=== PATIENT | female | born 1965 | race Caucasian/White ===

== ENCOUNTER 2020-07-13 15:22 | Outpatient (REF) | payer MEDICAID, SELFPAY ==
--- NOTE | 2020-07-13 15:26 | MM_ITS ---
EXAMINATION: MM SCREENING DIGITAL BREAST TOMOSYNTHESIS, BILATERAL CLINICAL INFORMATION: Screening. Asymptomatic. The lifetime risk of breast cancer based on the Tyrer-Cuzick Model is 7.3%. COMPARISON: Mammography: December 03, 2015 and studies dating back to January 17, 2012 TECHNIQUE: Digital breast tomosynthesis is performed in both the craniocaudal and mediolateral oblique views along with computer-aided detection (CAD). Synthesized 2D images are generated from the tomosynthesis. FINDINGS: The breasts are heterogeneously dense, which may obscure small masses (ACR BI-RADS breast composition Category c). No new abnormal dominant mass is seen within the right breast. No suspicious grouping of microcalcifications or architectural distortion seen. Within the central lateral aspect of the left breast on craniocaudal view there is a 6 mm partially circumscribed density approximately 5 cm from the nipple for which spot compression view and possible ultrasound is recommended. I do not definitely see a correlate on mediolateral oblique image. MM/MM tomosynthesis screening BI IMPRESSION: Left breast density for further evaluation. ASSESSMENT: BI-RADS 0: Incomplete - Need Additional Imaging Evaluation RECOMMENDATION: 1. Additional views of the left breast 2. Targeted ultrasound if warranted after review of the additional views. 3. Radiology department staff will contact the patient for additional imaging.
== END 2020-07-13 15:23 | disposition home or self-care (01) ==
LOC: HO.MAMMO 15:22
PROVIDERS: Visit Provider Internal Medicine
DX: Z12.31 Encounter for screening mammogram for malignant neoplasm of breast (principal)
CPT/HCPCS: 77063; 77067

== ENCOUNTER 2020-07-15 16:22 | Outpatient (REF) | payer MEDICAID, SELFPAY ==
--- NOTE | 2020-07-15 17:25 | XR_ITS ---
EXAMINATION: XR FOOT, LEFT XR FOOT, RIGHT XR HAND, RIGHT XR HAND, LEFT XR KNEE, RIGHT CLINICAL INFORMATION: 55-year-old female with history of systemic lupus erythematosus. COMPARISON: None TECHNIQUE: Right knee, 4 views Right hand, 3 views Left hand, 3 views Right foot, 3 views Left foot, 3 views FINDINGS: Right knee: Alignment is normal. Bones, joints and soft tissues are normal. No arthritic changes. No fracture, subluxation or joint effusion. Right hand: Carpal bones are normal. The carpal joint spaces are well-preserved. At the thumb MCP joint, there is mild narrowing of joint space and minimal osteophyte formation. Soft tissues are swollen around the MCP joint. There is mild anterior subluxation of the proximal phalanx at this joint. No ulnar deviation at MCP joints. The 2nd - 5th MCP joint spaces are normal. Mild joint space narrowing and/or minimal marginal osteophyte formation at some of the DIP joints. No periarticular osteoporosis, erosion or periostitis. No soft tissue calcifications. Left hand: Bones have normal alignment in the hand and wrist. No particular osteoporosis, erosion or periostitis. Small subchondral cyst of the proximal lunate at the ulnolunate joint. No subluxation or ulnar deviation at the metacarpophalangeal joints. There are osteophytes at several DIP joints. No soft tissue calcifications. Right foot: Moderate-sized plantar calcaneal enthesophyte. Bones have normal alignment. Joint spaces are maintained in the midfoot, hindfoot and metatarsophalangeal joints. No periarticular osteoporosis, subluxation or soft tissue calcification. No erosions or periostitis. There is joint space narrowing with minimal marginal osteophyte formation at some of the DIP joints. Left foot: Moderate-sized plantar calcaneal enthesophyte. Bones have normal alignment. Joint spaces are maintained in the midfoot, hindfoot and metatarsophalangeal joints. No periarticular osteoporosis, subluxation or soft tissue calcification. No erosions or periostitis. There is joint space narrowing and minimal marginal osteophyte formation at some of the DIP joints. There appears to be minimal degenerative subluxation at the 4th DIP joint. XR/XR foot LT min 3V IMPRESSION: * The right knee is normal. * No soft tissue calcifications in the hands or feet. At the right thumb metacarpophalangeal joint, there is mild particular soft tissue swelling and mild volar subluxation. Although findings are nonspecific, they might be related to the patient's autoimmune disease. 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
[2020-07-15 18:06] LABS: Basophils Absolute Auto 0.1 X10*3/uL (0.0-0.2); Basophils Percent Auto 0.6 % (0-2); Hemoglobin 12.3 g/dl (12.0-16.0); Imm Gran Abs Auto 0.04 X10*3/uL (0.00-0.03); Imm Gran Pct Auto 0.5 % (0.0-0.4); MANUAL DIFF FLAG SCAN; Mean Platelet Volume 12.2 fL (9.4-12.3); PLT CLUMP 1; SCAN SMEAR FLAG 1
[2020-07-15 18:08] LABS: Eosinophils Absolute Auto 0.2 X10*3/uL (0.0-0.4); Hematocrit 38.2 % (37-47); Lymphocytes Absolute Auto 2.9 X10*3/uL (1.2-4.9); Lymphocytes Percent Auto 32.5 % (20-40); Mean Corpuscular HGB Conc 32.2 g/dl (31.0-35.0); Mean Corpuscular Hemoglobin 28.7 pg (27.0-33.0); Mean Corpuscular Volume 89.3 fL (80-98); Monocytes Absolute Auto 0.7 X10*3/uL (0.1-1.2); Monocytes Percent Auto 8.2 % (2-11); Neutrophils Percent Auto 56.2 % (45-73); Red Blood Count 4.28 X10*6/uL (4.20-5.50); White Blood Count 8.8 X10*3/uL (4.8-10.8)
[2020-07-15 18:11] LABS: Glucose Urine UA NEG (NEG); Leukocyte Esterase Urine TRACE (NEG); Nitrite Urine NEG (NEG); PH 5.5 (5.0-8.0); Specific Gravity - Urine >= 1.030 (1.005-1.025); Urine Blood NEG (NEG); Urine Ketones NEG (NEG); Urine Protein NEG (NEG-TRACE)
[2020-07-15 18:13] LABS: Appearance Urine CLEAR; Color Urine YELLOW
[2020-07-15 18:18] LABS: Bacteria Urine TRACE /LPF; RBC Urine 0 /HPF (0); Squamous Epithelial Cell Urine 1+ /LPF; WBC Urine 0-2 /HPF (0-4)
[2020-07-15 18:32] LABS: Alanine Aminotransferase 30 U/L (0-31); Albumin Level 4.4 g/dL (3.5-5.0); Alkaline Phosphatase 100 U/L (39-117); Anion Gap 13 (12-20); Aspartate Amino Transferase 24 U/L (5-31); Bilirubin Total 0.2 mg/dL (0.0-1.0); Blood Urea Nitrogen 24 mg/dL (9-16); C Reactive Protein 0.41 mg/dL (< or = 0.50); Calcium 9.4 mg/dL (8.4-10.2); Carbon Dioxide 27 mmol/L (22-29); Chloride 102 mmol/L (96-108); Estimated Glomerular Filt Rate > 60; Glucose Random 82 mg/dL (60-115); Platelet Count 204 X10*3/uL (160-400); Potassium 4.5 mmol/l (3.3-5.1); Rheumatoid Factor < 15.0 IU/mL (<15.0); Sodium 137 mmol/L (135-145); Total Protein 7.9 g/dL (6.5-8.0)
[2020-07-15 19:07] LABS: Erythrocyte Sedimentation Rate 34 MM/HR (0-20)
[2020-07-15 22:51] LABS: SLIDE REVIEW VERIFIED
[2020-07-17 08:45] LABS: Hepatitis A Antibody IgM 0.66 Index (0-0.79); ~HepC Num1 0.06 S/CO (0.00-0.79); ~Hepatitis A Antibody IgM Nonreactive (Nonreactive); ~Hepatitis B Surface Antibody REACTIVE (Nonreactive); ~Hepatitis C Antibody Nonreactive (Nonreactive)
[2020-07-17 09:27] LABS: HBc Num1 0.04 S/CO (0.00-0.79); HBsAGNum1 0.18 S/CO (0.00-0.99); Hepatitis B Core Antibody Nonreactive (Nonreactive); Hepatitis B Surface Antigen Negative (Negative)
[2020-07-17 11:53] LABS: Complement C3 168 mg/dL (83-193)
[2020-07-17 12:17] LABS: Anti DNA DS Antibody 2 IU/mL; Antibody to SS-A Antigen <1.0 NEG AI (<1.0 NEG); Antibody to SS-B Antigen <1.0 NEG AI (<1.0 NEG); SM/Ribonucleoprotein Ab <1.0 NEG AI (<1.0 NEG); Smith Protein <1.0 NEG AI (<1.0 NEG)
[2020-07-17 18:57] LABS: Cyclic Citrullinated Peptide <16 UNITS
[2020-07-17 20:32] LABS: TS Negative Control Passed; TS Panel A 0; TS Panel B 0; TS Positive Control Passed; TSpotTB Negative (SeeBelow)
[2020-07-18 15:57] LABS: Anti Nuclear Antibody Pattern Nuclear, Speckled; Anti Nuclear Antibody Screen POSITIVE (NEGATIVE); Anti Nuclear Antibody Titer 1:40 titer
== END 2020-07-15 16:23 | disposition home or self-care (01) ==
LOC: HO.LAB 16:22
PROVIDERS: PCP Internal Medicine; Referring Provider Internal Medicine; Visit Provider Student in an Organized Health Care Education/Training Program
DX: M32.9 Systemic lupus erythematosus, unspecified (principal)
CPT/HCPCS: 36415; 73130; 73564; 73630; 80053; 81001; 85025; 85652; 86038; 86039; 86140; 86160; 86200; 86225; 86235; 86431; 86481; 86704; 86706; 86709; 86803; 87340; 99202

== ENCOUNTER 2020-08-10 11:38 | Emergency (ER) | payer MEDICAID, SELFPAY ==
[2020-08-10 12:51] VITALS: BP 136/70; PULSE 89; RESP 16; TEMP 36.5; O2SAT 100; BMI 30.2
--- NOTE | 2020-08-10 12:51 | ED_ITS ---
HPI - General Adult General Chief complaint: General Medical <Marie Levy NP - Last Filed: 08/10/20 12:54> Stated complaint: chest pain,hand tingling,back pain <Marie Levy NP - Last Filed: 08/10/20 12:54> Time Seen by Provider: 08/10/20 12:51 <Marie Levy NP - Last Filed: 08/10/20 12:54> Related Data Home medications: Home Medications Medication Instructions Recorded Confirmed acetaminophen 650 mg 650 mg PO Q12H 07/15/20 tablet,extended release betamethasone dipropionate 0.05 % 1 appl TOPICAL DAILY 07/15/20 lotion calcium carbonate 600 mg calcium 600 mg PO DAILY 07/15/20 (1,500 mg) tablet cholecalciferol (vitamin D3) 50 50 mcg PO DAILY 07/15/20 mcg (2,000 unit) capsule citalopram 40 mg tablet 40 mg PO DAILY 07/15/20 diclofenac potassium 50 mg tablet 50 mg PO DAILY 07/15/20 diclofenac sodium 1 % topical gel 2 g TOPICAL QID 07/15/20 hydroxychloroquine 200 mg tablet 200 mg PO DAILY 07/15/20 lidocaine 5 % topical ointment 1 appl TOPICAL BEDTIME 07/15/20 omeprazole 20 mg capsule,delayed 20 mg PO DAILY 07/15/20 release quetiapine 25 mg tablet 25 mg PO BEDTIME 07/15/20 rosuvastatin 40 mg tablet 40 mg PO DAILY 07/15/20 Previous Rx's Medication Instructions Recorded tizanidine 2 mg capsule 2 mg PO BEDTIME PRN #30 cap 07/15/20 <Marie Levy NP - Last Filed: 08/10/20 12:54> Allergies/adverse reactions: Allergies Allergy/AdvReac Type Severity Reaction Status Date / Time No Known Allergies Allergy Verified 07/15/20 16:24 [No Known Allergies*] <Marie Levy NP - Last Filed: 08/10/20 12:54> PMF Past Medical History Medical History: Medical History Carpal tunnel syndrome, right Depression GERD (gastroesophageal reflux disease) Hx of carpal tunnel syndrome Hypercholesterolemia Lupus <Marie Levy NP - Last Filed: 08/10/20 12:54> Surgical History: Surgical History H/O: hysterectomy Hx of hernia repair Hx of oophorectomy Hx of tubal ligation <Marie Levy NP - Last Filed: 08/10/20 12:54> Family History Family History: Family History Father Liver cancer <Marie Levy NP - Last Filed: 08/10/20 12:54> Social History Social History: Social History Alcohol intake: never Smoking Status: Never smoker Advance Directives: No Advance Directives Information Provided: Yes <Marie Levy NP - Last Filed: 08/10/20 12:54> Physical Exam Vital Signs: Vital Signs: Last Vital Signs Temp 98.5 F 08/10/20 20:26 Pulse 85 08/10/20 20:26 Resp 16 08/10/20 12:51 BP 133/82 08/10/20 20:26 Pulse Ox 98 08/10/20 20:26 Body Mass Index 30.2 <Marie Levy NP - Last Filed: 08/10/20 12:54> Vital Signs: Last Vital Signs Temp 98.5 F 08/10/20 20:26 Pulse 85 08/10/20 20:26 Resp 16 08/10/20 12:51 BP 133/82 08/10/20 20:26 Pulse Ox 98 08/10/20 20:26 Body Mass Index 30.2 <Alisia Carver MD - Last Filed: 08/10/20 21:56> Course Course Course Narrative: 1250-This is a rapid medical exam. 55 yo female with past medical history here left mid back which radiates to left chest, left arm and left shoulder x 3 weeks. Pain is worsened with deep breathing. No cough/shotness of breath. +malaise. Will check CXR, EKG, labs. Deferred additional HPI, PE and ROS to primary provider. <Marie Levy NP - Last Filed: 08/10/20 12:54> Medical Decision Making Lab Data Result diagrams: : 08/10/20 15:47 08/10/20 15:47 <Marie Levy NP - Last Filed: 08/10/20 12:54> Labs: Lab Results 08/10/20 08/10/20 08/10/20 Range/Units 15:46 15:47 15:47 WBC 9.7 (4.8-10.8) X10*3/uL RBC 4.63 (4.20-5.50) X10*6/uL Hgb 13.4 (12.0-16.0) g/dl Hct 40.9 (37-47) % MCV 88.3 (80-98) fL MCH 28.9 (27.0-33.0) pg MCHC 32.8 (31.0-35.0) g/dl RDW 13.1 (11.0-16.0) % Plt Count 263 D (160-400) X10*3/uL MPV 10.8 (9.4-12.3) fL Immature Gran % (Auto) 0.5 H (0.0-0.4) % Neut % (Auto) 61.1 (45-73) % Lymph % (Auto) 29.8 (20-40) % [place] % (Auto) 7.0 (2-11) % Eos % (Auto) 1.1 (0-4) % Baso % (Auto) 0.5 (0-2) % Lymph # (Auto) 2.9 (1.2-4.9) X10*3/uL [place] # (Auto) 0.7 (0.1-1.2) X10*3/uL Eos # (Auto) 0.1 (0.0-0.4) X10*3/uL Baso # (Auto) 0.1 (0.0-0.2) X10*3/uL Abs Immat Gran (auto) 0.05 H (0.00-0.03) X10*3/uL Absolute Neuts (auto) 5.9 (2.0-8.3) X10*3/uL Absolute Nucleated RBC 0.000 (0.0-0.012) X10*3/uL Nucleated RBC % (auto) 0.0 (0.0-0.2) /100WBC Hold Blue Top SEE NOTE Sodium 135 (135-145) mmol/L Potassium 5.1 (3.3-5.1) mmol/l Chloride 99 (96-108) mmol/L Carbon Dioxide 29 (22-29) mmol/L Anion Gap 12 (12-20) BUN 25 H (9-16) mg/dL Creatinine 0.87 (0.5-1.4) mg/dL Estim Creat Clear Calc 79.2 Estimated GFR > 60 Random Glucose 90 (60-115) mg/dL Calcium 9.8 (8.4-10.2) mg/dL Troponin I High Sens (<3.5-17.0) ng/L Urine Color Urine Appearance Urine pH (5.0-8.0) Ur Specific [place] (1.005-1.025) Urine Protein (NEG-TRACE) MG/DL Urine Glucose (UA) (NEG) MG/DL Urine Ketones (NEG) MG/DL Urine Blood (NEG) Urine Nitrite (NEG) Ur Leukocyte Esterase (NEG) 08/10/20 08/10/20 Range/Units 15:47 21:13 WBC (4.8-10.8) X10*3/uL RBC (4.20-5.50) X10*6/uL Hgb (12.0-16.0) g/dl Hct (37-47) % MCV (80-98) fL MCH (27.0-33.0) pg MCHC (31.0-35.0) g/dl RDW (11.0-16.0) % Plt Count (160-400) X10*3/uL MPV (9.4-12.3) fL Immature Gran % (Auto) (0.0-0.4) % Neut % (Auto) (45-73) % Lymph % (Auto) (20-40) % [place] % (Auto) (2-11) % Eos % (Auto) (0-4) % Baso % (Auto) (0-2) % Lymph # (Auto) (1.2-4.9) X10*3/uL [place] # (Auto) (0.1-1.2) X10*3/uL Eos # (Auto) (0.0-0.4) X10*3/uL Baso # (Auto) (0.0-0.2) X10*3/uL Abs Immat Gran (auto) (0.00-0.03) X10*3/uL Absolute Neuts (auto) (2.0-8.3) X10*3/uL Absolute Nucleated RBC (0.0-0.012) X10*3/uL Nucleated RBC % (auto) (0.0-0.2) /100WBC Hold Blue Top Sodium (135-145) mmol/L Potassium (3.3-5.1) mmol/l Chloride (96-108) mmol/L Carbon Dioxide (22-29) mmol/L Anion Gap (12-20) BUN (9-16) mg/dL Creatinine (0.5-1.4) mg/dL Estim Creat Clear Calc Estimated GFR Random Glucose (60-115) mg/dL Calcium (8.4-10.2) mg/dL Troponin I High Sens < 3.5 (<3.5-17.0) ng/L Urine Color YELLOW Urine Appearance CLEAR Urine pH 6.5 (5.0-8.0) Ur Specific [place] 1.025 (1.005-1.025) Urine Protein NEG (NEG-TRACE) MG/DL Urine Glucose (UA) NEG (NEG) MG/DL Urine Ketones NEG (NEG) MG/DL Urine Blood NEG (NEG) Urine Nitrite NEG (NEG) Ur Leukocyte Esterase NEG (NEG) <Marie Levy, [employer] - Last Filed: 08/10/20 12:54> Lab Results 08/10/20 08/10/20 08/10/20 Range/Units 15:46 15:47 15:47 WBC 9.7 (4.8-10.8) X10*3/uL RBC 4.63 (4.20-5.50) X10*6/uL Hgb 13.4 (12.0-16.0) g/dl Hct 40.9 (37-47) % MCV 88.3 (80-98) fL MCH 28.9 (27.0-33.0) pg MCHC 32.8 (31.0-35.0) g/dl RDW 13.1 (11.0-16.0) % Plt Count 263 D (160-400) X10*3/uL MPV 10.8 (9.4-12.3) fL Immature Gran % (Auto) 0.5 H (0.0-0.4) % Neut % (Auto) 61.1 (45-73) % Lymph % (Auto) 29.8 (20-40) % [place] % (Auto) 7.0 (2-11) % Eos % (Auto) 1.1 (0-4) % Baso % (Auto) 0.5 (0-2) % Lymph # (Auto) 2.9 (1.2-4.9) X10*3/uL [place] # (Auto) 0.7 (0.1-1.2) X10*3/uL Eos # (Auto) 0.1 (0.0-0.4) X10*3/uL Baso # (Auto) 0.1 (0.0-0.2) X10*3/uL Abs Immat Gran (auto) 0.05 H (0.00-0.03) X10*3/uL Absolute Neuts (auto) 5.9 (2.0-8.3) X10*3/uL Absolute Nucleated RBC 0.000 (0.0-0.012) X10*3/uL Nucleated RBC % (auto) 0.0 (0.0-0.2) /100WBC Hold Blue Top SEE NOTE Sodium 135 (135-145) mmol/L Potassium 5.1 (3.3-5.1) mmol/l Chloride 99 (96-108) mmol/L Carbon Dioxide 29 (22-29) mmol/L Anion Gap 12 (12-20) BUN 25 H (9-16) mg/dL Creatinine 0.87 (0.5-1.4) mg/dL Estim Creat Clear Calc 79.2 Estimated GFR > 60 Random Glucose 90 (60-115) mg/dL Calcium 9.8 (8.4-10.2) mg/dL Troponin I High Sens (<3.5-17.0) ng/L Urine Color Urine Appearance Urine pH (5.0-8.0) Ur Specific [place] (1.005-1.025) Urine Protein (NEG-TRACE) MG/DL Urine Glucose (UA) (NEG) MG/DL Urine Ketones (NEG) MG/DL Urine Blood (NEG) Urine Nitrite (NEG) Ur Leukocyte Esterase (NEG) 08/10/20 08/10/20 Range/Units 15:47 21:13 WBC (4.8-10.8) X10*3/uL RBC (4.20-5.50) X10*6/uL Hgb (12.0-16.0) g/dl Hct (37-47) % MCV (80-98) fL MCH (27.0-33.0) pg MCHC (31.0-35.0) g/dl RDW (11.0-16.0) % Plt Count (160-400) X10*3/uL MPV (9.4-12.3) fL Immature Gran % (Auto) (0.0-0.4) % Neut % (Auto) (45-73) % Lymph % (Auto) (20-40) % [place] % (Auto) (2-11) % Eos % (Auto) (0-4) % Baso % (Auto) (0-2) % Lymph # (Auto) (1.2-4.9) X10*3/uL [place] # (Auto) (0.1-1.2) X10*3/uL Eos # (Auto) (0.0-0.4) X10*3/uL Baso # (Auto) (0.0-0.2) X10*3/uL Abs Immat Gran (auto) (0.00-0.03) X10*3/uL Absolute Neuts (auto) (2.0-8.3) X10*3/uL Absolute Nucleated RBC (0.0-0.012) X10*3/uL Nucleated RBC % (auto) (0.0-0.2) /100WBC Hold Blue Top Sodium (135-145) mmol/L Potassium (3.3-5.1) mmol/l Chloride (96-108) mmol/L Carbon Dioxide (22-29) mmol/L Anion Gap (12-20) BUN (9-16) mg/dL Creatinine (0.5-1.4) mg/dL Estim Creat Clear Calc Estimated GFR Random Glucose (60-115) mg/dL Calcium (8.4-10.2) mg/dL Troponin I High Sens < 3.5 (<3.5-17.0) ng/L Urine Color YELLOW Urine Appearance CLEAR Urine pH 6.5 (5.0-8.0) Ur Specific [place] 1.025 (1.005-1.025) Urine Protein NEG (NEG-TRACE) MG/DL Urine Glucose (UA) NEG (NEG) MG/DL Urine Ketones NEG (NEG) MG/DL Urine Blood NEG (NEG) Urine Nitrite NEG (NEG) Ur Leukocyte Esterase NEG (NEG) <Alisia Carver MD - Last Filed: 08/10/20 21:56> Imaging Data Chest x-ray: Radiologist's impression: FINDINGS: No significant abnormality is noted involving the heart, lungs, mediastinum, bony thorax or soft tissues. XR/XR chest 2V IMPRESSION: Unremarkable chest exam. <Alisia Carver MD - Last Filed: 08/10/20 21:56> ECG Data Attestation: I personally reviewed and interpreted this ECG as follows: (Heart rate 75, sinus rhythm, QTC elevation or depression, no ST segment depression) <Alisia Carver MD - Last Filed: 08/10/20 21:56> Discharge Plan Discharge Clinical Impression: Back pain Qualifiers: Back pain location: back pain in unspecified location Chronicity: unspecified Back pain laterality: left Qualified Code(s): M54.9 - Dorsalgia, unspecified Arthralgia Qualifiers: Joint pain location: shoulder Laterality: left Qualified Code(s): M25.512 - Pain in left shoulder <Marie Levy NP - Last Filed: 08/10/20 12:54> Patient Disposition: Home, Self-Care <Marie Levy NP - Last Filed: 08/10/20 12:54> Instructions: Arthralgia (ED) <Marie Levy NP - Last Filed: 08/10/20 12:54> Additional Instructions: Please follow-up with your primary care physician tomorrow. If you have any worsening or new symptoms, please return to the emergency room or call 911 <Marie Levy NP - Last Filed: 08/10/20 12:54> Prescriptions: No Action betamethasone dipropionate 0.05 % lotion 1 appl topical DAILY RF: 0 calcium carbonate 600 mg calcium (1,500 mg) tablet 600 mg PO DAILY RF: 0 citalopram 40 mg tablet 40 mg PO DAILY RF: 0 diclofenac potassium 50 mg tablet 50 mg PO DAILY RF: 0 diclofenac sodium 1 % gel 2 g topical QID RF: 0 hydroxychloroquine [Plaquenil] 200 mg tablet 200 mg PO DAILY RF: 0 lidocaine 5 % ointment 1 appl topical BEDTIME RF: 0 acetaminophen [Tylenol 8 Hour] 650 mg tablet extended release 650 mg PO Q12H RF: 0 omeprazole 20 mg capsule,delayed release(DR/EC) 20 mg PO DAILY RF: 0 rosuvastatin 40 mg tablet 40 mg PO DAILY RF: 0 quetiapine 25 mg tablet 25 mg PO BEDTIME RF: 0 cholecalciferol (vitamin D3) 50 mcg (2,000 unit) capsule 50 mcg PO DAILY RF: 0 tizanidine 2 mg capsule 2 mg PO BEDTIME PRN (Reason: muscle spasticity) Qty: 30 RF: 0 <Marie Levy NP - Last Filed: 08/10/20 12:54> Stand Alone Forms: Work/School Release <Marie Levy NP - Last Filed: 08/10/20 12:54>
--- NOTE | 2020-08-10 12:54 | ECG_ITS ---
Test Reason : cp Blood Pressure : / mmHG Vent. Rate : 075 BPM Atrial Rate : 075 BPM P-R Int : 194 ms QRS Dur : 084 ms QT Int : 388 ms P-R-T Axes : 058 032 035 degrees QTc Int : 433 ms Normal sinus rhythm Normal ECG No previous ECGs available Referred By: Alisia Carver Electronically Signed By:Gómez Lynne
--- NOTE | 2020-08-10 12:55 | XR_ITS ---
EXAMINATION: XR CHEST CLINICAL INFORMATION: Chest pain. COMPARISON: None TECHNIQUE: 2 views of the chest were obtained. FINDINGS: No significant abnormality is noted involving the heart, lungs, mediastinum, bony thorax or soft tissues. XR/XR chest 2V IMPRESSION: Unremarkable chest exam.
[2020-08-10 15:58] LABS: MANUAL DIFF FLAG NO
[2020-08-10 16:00] LABS: Basophils Absolute Auto 0.1 X10*3/uL (0.0-0.2); Basophils Percent Auto 0.5 % (0-2); Eosinophils Absolute Auto 0.1 X10*3/uL (0.0-0.4); Eosinophils Percent Auto 1.1 % (0-4); Hematocrit 40.9 % (37-47); Hemoglobin 13.4 g/dl (12.0-16.0); Imm Gran Abs Auto 0.05 X10*3/uL (0.00-0.03); Imm Gran Pct Auto 0.5 % (0.0-0.4); Lymphocytes Absolute Auto 2.9 X10*3/uL (1.2-4.9); Lymphocytes Percent Auto 29.8 % (20-40); Mean Corpuscular HGB Conc 32.8 g/dl (31.0-35.0); Mean Corpuscular Hemoglobin 28.9 pg (27.0-33.0); Mean Corpuscular Volume 88.3 fL (80-98); Mean Platelet Volume 10.8 fL (9.4-12.3); Monocytes Absolute Auto 0.7 X10*3/uL (0.1-1.2); Neutrophils Absolute Auto 5.9 X10*3/uL (2.0-8.3); Neutrophils Percent Auto 61.1 % (45-73); Platelet Count 263 X10*3/uL (160-400); Red Blood Count 4.63 X10*6/uL (4.20-5.50); Red Cell Distribution Width 13.1 % (11.0-16.0); White Blood Count 9.7 X10*3/uL (4.8-10.8)
[2020-08-10 16:35] LABS: Anion Gap 12 (12-20); Blood Urea Nitrogen 25 mg/dL (9-16); Calcium 9.8 mg/dL (8.4-10.2); Carbon Dioxide 29 mmol/L (22-29); Chloride 99 mmol/L (96-108); Creatinine Clr Calc Pharmacy 79.2; Estimated Glomerular Filt Rate > 60; Glucose Random 90 mg/dL (60-115); Potassium 5.1 mmol/l (3.3-5.1); Sodium 135 mmol/L (135-145)
[2020-08-10 16:38] LABS: Troponin-I High Sensitivity < 3.5 ng/L (<3.5-17.0)
[2020-08-10 20:26] VITALS: BP 133/82; PULSE 85; TEMP 36.9; O2SAT 98
--- NOTE | 2020-08-10 21:21 | ED.GENADULT ---
HPI - General Adult General Chief complaint: General Medical Stated complaint: chest pain,hand tingling,back pain Time Seen by Provider: 08/10/20 12:51 Source: patient Mode of arrival: ambulatory Limitations: no limitations History of Present Illness HPI narrative: Patient comes to emergency room complaining of multiple body aches, patient complaining of left shoulder pain, left flank pain, left chest pain left hip pain. Patient states about a month ago she had an injury at work, and states that for about a week she has been having body aches on the left side. MD complaint: Left side body ache Related Data Home Medications Medication Instructions Recorded Confirmed acetaminophen 650 mg 650 mg PO Q12H 07/15/20 tablet,extended release betamethasone dipropionate 0.05 % 1 appl TOPICAL DAILY 07/15/20 lotion calcium carbonate 600 mg calcium 600 mg PO DAILY 07/15/20 (1,500 mg) tablet cholecalciferol (vitamin D3) 50 50 mcg PO DAILY 07/15/20 mcg (2,000 unit) capsule citalopram 40 mg tablet 40 mg PO DAILY 07/15/20 diclofenac potassium 50 mg tablet 50 mg PO DAILY 07/15/20 diclofenac sodium 1 % topical gel 2 g TOPICAL QID 07/15/20 hydroxychloroquine 200 mg tablet 200 mg PO DAILY 07/15/20 lidocaine 5 % topical ointment 1 appl TOPICAL BEDTIME 07/15/20 omeprazole 20 mg capsule,delayed 20 mg PO DAILY 07/15/20 release quetiapine 25 mg tablet 25 mg PO BEDTIME 07/15/20 rosuvastatin 40 mg tablet 40 mg PO DAILY 07/15/20 Previous Rx's Medication Instructions Recorded tizanidine 2 mg capsule 2 mg PO BEDTIME PRN #30 cap 07/15/20 Allergies Allergy/AdvReac Type Severity Reaction Status Date / Time No Known Allergies Allergy Verified 07/15/20 16:24 [No Known Allergies*] Review of Systems Review of Systems: Constitutional : No Weight loss, No Fever, No Chills, No Night Sweats, No Fatigue, No Malaise ENT/Mouth : No Hearing loss, No Ear Pain, No Nasal Congestion, No Sinus Pain, No Hoarseness, No sore throat, No Rhinorrhea, No Swallowing Difficulty Eyes: No Eye Pain, No Swelling, No Redness, No Foreign Body, No Discharge, No Vision Changes Cardiovascular : No Chest Pain, No SOB, No Dyspnea on Exertion, No Orthopnea, No Edema, No Palpitations Respiratory : No Cough, No Sputum, No Wheezing, No Smoke Exposure, No Dyspnea Gastrointestinal : No Nausea, No Vomiting, No Diarrhea, No Constipation, No abdominal Pain, No Hematochezia, No Melena Genitourinary : no irregular bleeding, No Dysuria, No Urinary Frequency, No Hematuria, No Urinary Incontinence, No Urgency, No Flank Pain, No Urinary Flow Changes, No Hesitancy Musculoskeletal : Patient complaining of left shoulder pain, left upper back pain, left lower pain, hip pain Skin : No Skin Lesions, No rash Neuro : No Weakness, No Numbness, No Paresthesias, No Loss of Consciousness, No Dizziness, No Headache Psych : No Anxiety/Panic, No Depression, No SI/HI/AH/VH, No Social Issues, Heme/Lymph: No Bruising, No Bleeding,No Lymphadenopathy Endocrine : No Polyuria, No Polydipsia, No Temperature Intolerance PMFSH Past Medical History Medical History Carpal tunnel syndrome, right Depression GERD (gastroesophageal reflux disease) Hx of carpal tunnel syndrome Hypercholesterolemia Lupus Surgical History H/O: hysterectomy Hx of hernia repair Hx of oophorectomy Hx of tubal ligation Family History Family History Father Liver cancer Social History Social History Alcohol intake: never Smoking Status: Never smoker Advance Directives: No Advance Directives Information Provided: Yes Physical Exam Vital Signs: Vital Signs: Last Vital Signs Temp 98.5 F 08/10/20 20:26 Pulse 85 08/10/20 20:26 Resp 16 08/10/20 12:51 BP 133/82 08/10/20 20:26 Pulse Ox 98 08/10/20 20:26 Body Mass Index 30.2 Appearance: Alert. Oriented X3. No acute distress. Eyes: Pupils equal, round and reactive to light. ENT: Pharynx normal. Neck: Normal inspection. Neck supple. No lymph nodes noted. No crepitus CVS: Normal heart rate and rhythm. Pulses normal. Normal S1 and S2 Respiratory: No respiratory distress. Breath sounds normal. No Wheezing. No rales Abdomen: Soft and nontender. No rigidity. No distention. good BS x4 Back: Pain to palpation over the upper thoracic area on the left side, over the paraspinal muscles on the left side, no CVA tenderness Skin: Skin warm and dry. Normal skin color. Normal skin turgor. Extremities: No lower extremity edema. No lower extremity edema. No Lacerations. No Rash Neuro: Oriented X 3. No motor deficit. No sensory deficit. Moving all extermities. No slurred speech. Course Course Course Narrative: I discussed the labs and imaging with the patient, no acute finding. Patient will likely need physical therapy for musculoskeletal pain. Patient states that she has not had any NSAID/diclofenac in a over 3 months. Patient was given 1 injection of IM ketorolac. 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 Medical Decision Making Lab Data Result diagrams: 08/10/20 15:47 08/10/20 15:47 Labs: Lab Results 08/10/20 08/10/20 08/10/20 Range/Units 15:46 15:47 15:47 WBC 9.7 (4.8-10.8) X10*3/uL RBC 4.63 (4.20-5.50) X10*6/uL Hgb 13.4 (12.0-16.0) g/dl Hct 40.9 (37-47) % MCV 88.3 (80-98) fL MCH 28.9 (27.0-33.0) pg MCHC 32.8 (31.0-35.0) g/dl RDW 13.1 (11.0-16.0) % Plt Count 263 D (160-400) X10*3/uL MPV 10.8 (9.4-12.3) fL Immature Gran % (Auto) 0.5 H (0.0-0.4) % Neut % (Auto) 61.1 (45-73) % Lymph % (Auto) 29.8 (20-40) % [place] % (Auto) 7.0 (2-11) % Eos % (Auto) 1.1 (0-4) % Baso % (Auto) 0.5 (0-2) % Lymph # (Auto) 2.9 (1.2-4.9) X10*3/uL [place] # (Auto) 0.7 (0.1-1.2) X10*3/uL Eos # (Auto) 0.1 (0.0-0.4) X10*3/uL Baso # (Auto) 0.1 (0.0-0.2) X10*3/uL Abs Immat Gran (auto) 0.05 H (0.00-0.03) X10*3/uL Absolute Neuts (auto) 5.9 (2.0-8.3) X10*3/uL Absolute Nucleated RBC 0.000 (0.0-0.012) X10*3/uL Nucleated RBC % (auto) 0.0 (0.0-0.2) /100WBC Hold Blue Top SEE NOTE Sodium 135 (135-145) mmol/L Potassium 5.1 (3.3-5.1) mmol/l Chloride 99 (96-108) mmol/L Carbon Dioxide 29 (22-29) mmol/L Anion Gap 12 (12-20) BUN 25 H (9-16) mg/dL Creatinine 0.87 (0.5-1.4) mg/dL Estim Creat Clear Calc 79.2 Estimated GFR > 60 Random Glucose 90 (60-115) mg/dL Calcium 9.8 (8.4-10.2) mg/dL Troponin I High Sens (<3.5-17.0) ng/L Urine Color Urine Appearance Urine pH (5.0-8.0) Ur Specific [place] (1.005-1.025) Urine Protein (NEG-TRACE) MG/DL Urine Glucose (UA) (NEG) MG/DL Urine Ketones (NEG) MG/DL Urine Blood (NEG) Urine Nitrite (NEG) Ur Leukocyte Esterase (NEG) 08/10/20 08/10/20 Range/Units 15:47 21:13 WBC (4.8-10.8) X10*3/uL RBC (4.20-5.50) X10*6/uL Hgb (12.0-16.0) g/dl Hct (37-47) % MCV (80-98) fL MCH (27.0-33.0) pg MCHC (31.0-35.0) g/dl RDW (11.0-16.0) % Plt Count (160-400) X10*3/uL MPV (9.4-12.3) fL Immature Gran % (Auto) (0.0-0.4) % Neut % (Auto) (45-73) % Lymph % (Auto) (20-40) % [place] % (Auto) (2-11) % Eos % (Auto) (0-4) % Baso % (Auto) (0-2) % Lymph # (Auto) (1.2-4.9) X10*3/uL [place] # (Auto) (0.1-1.2) X10*3/uL Eos # (Auto) (0.0-0.4) X10*3/uL Baso # (Auto) (0.0-0.2) X10*3/uL Abs Immat Gran (auto) (0.00-0.03) X10*3/uL Absolute Neuts (auto) (2.0-8.3) X10*3/uL Absolute Nucleated RBC (0.0-0.012) X10*3/uL Nucleated RBC % (auto) (0.0-0.2) /100WBC Hold Blue Top Sodium (135-145) mmol/L Potassium (3.3-5.1) mmol/l Chloride (96-108) mmol/L Carbon Dioxide (22-29) mmol/L Anion Gap (12-20) BUN (9-16) mg/dL Creatinine (0.5-1.4) mg/dL Estim Creat Clear Calc Estimated GFR Random Glucose (60-115) mg/dL Calcium (8.4-10.2) mg/dL Troponin I High Sens < 3.5 (<3.5-17.0) ng/L Urine Color YELLOW Urine Appearance CLEAR Urine pH 6.5 (5.0-8.0) Ur Specific [place] 1.025 (1.005-1.025) Urine Protein NEG (NEG-TRACE) MG/DL Urine Glucose (UA) NEG (NEG) MG/DL Urine Ketones NEG (NEG) MG/DL Urine Blood NEG (NEG) Urine Nitrite NEG (NEG) Ur Leukocyte Esterase NEG (NEG) Imaging Data Chest x-ray: Radiologist's impression: No significant abnormality is noted involving the heart, lungs, mediastinum, bony thorax or soft tissues. XR/XR chest 2V IMPRESSION: Unremarkable chest exam. ECG Data Attestation: I personally reviewed and interpreted this ECG as follows: (Heart rate 75, sinus rhythm, no ST segment depressions or elevations, no T-wave inversions) Discharge Plan Discharge Clinical Impression: Back pain, Arthralgia Patient Disposition: Home, Self-Care Instructions: Arthralgia (ED) Additional Instructions: Please follow-up with your primary care physician tomorrow. If you have any worsening or new symptoms, please return to the emergency room or call 911 Prescriptions: No Action betamethasone dipropionate 0.05 % lotion 1 appl topical DAILY RF: 0 calcium carbonate 600 mg calcium (1,500 mg) tablet 600 mg PO DAILY RF: 0 citalopram 40 mg tablet 40 mg PO DAILY RF: 0 diclofenac potassium 50 mg tablet 50 mg PO DAILY RF: 0 diclofenac sodium 1 % gel 2 g topical QID RF: 0 hydroxychloroquine [Plaquenil] 200 mg tablet 200 mg PO DAILY RF: 0 lidocaine 5 % ointment 1 appl topical BEDTIME RF: 0 acetaminophen [Tylenol 8 Hour] 650 mg tablet extended release 650 mg PO Q12H RF: 0 omeprazole 20 mg capsule,delayed release(DR/EC) 20 mg PO DAILY RF: 0 rosuvastatin 40 mg tablet 40 mg PO DAILY RF: 0 quetiapine 25 mg tablet 25 mg PO BEDTIME RF: 0 cholecalciferol (vitamin D3) 50 mcg (2,000 unit) capsule 50 mcg PO DAILY RF: 0 tizanidine 2 mg capsule 2 mg PO BEDTIME PRN (Reason: muscle spasticity) Qty: 30 RF: 0 Stand Alone Forms: Work/School Release
[2020-08-10 21:28] LABS: Glucose Urine UA NEG (NEG); Leukocyte Esterase Urine NEG (NEG); Nitrite Urine NEG (NEG); PH 6.5 (5.0-8.0); Specific Gravity - Urine 1.025 (1.005-1.025); Urine Blood NEG (NEG); Urine Ketones NEG (NEG); Urine Protein NEG (NEG-TRACE)
[2020-08-10 21:29] LABS: Appearance Urine CLEAR; Color Urine YELLOW
[2020-08-10] MEDS: Magnesium Hydrox/Alum Hydrox 30 ML ORAL.SUSP PO (21:39)
[2020-08-10] MEDS: Lidocaine HCl Viscous 2 % 15 ML SOLUTION MUCOUS MEM (21:39)
--- NOTE | 2020-08-10 22:06 | PC.NURSE ---
pt resting in bed, was able to ambulate to bathroom without difficulty. pt in no distress, respirations are non labored and clear.
[2020-08-10] MEDS: Ketorolac Tromethamine 30 MG/ML VIAL IVPUSH (22:08)
== END 2020-08-10 22:20 | disposition home or self-care (01) ==
PROVIDERS: Nurse Practitioner Family; Emergency Provider Emergency Medicine; PCP Family Medicine
DX: M54.9 Dorsalgia, unspecified (principal); M25.50 Pain in unspecified joint
CPT/HCPCS: 36415; 71046; 80048; 81003; 84484; 85025; 93005; 96374; 99283; 99284; J1885

== ENCOUNTER → 2020-08-13 14:20 | Outpatient (BNVA) | payer MEDICAID, SELFPAY | PROVIDERS: PCP Internal Medicine; Visit Provider Student in an Organized Health Care Education/Training Program | DX: M32.9 Systemic lupus erythematosus, unspecified (principal) | CPT/HCPCS: 99212 ==

== ENCOUNTER 2020-09-10 13:09 | Outpatient (REF) | payer MEDICAID, SELFPAY ==
--- NOTE | ~2020-09-10 | MM_ITS ---
EXAMINATION: MM DIAGNOSTIC DIGITAL BREAST TOMOSYNTHESIS, LEFT US TARGETED BREAST, LEFT CLINICAL INFORMATION: Density. COMPARISON: Mammography: 07/13/2020 and studies dating back to 01/17/2012. TECHNIQUE: Digital breast tomosynthesis is performed. 2D images are generated from the tomosynthesis. The following views are obtained: Medial and lateral rolled craniocaudal views and spot compression craniocaudal view. Targeted left breast ultrasound. FINDINGS: The breasts are heterogeneously dense, which may obscure small masses (ACR BI-RADS breast composition category C. Additional views demonstrate persistence of a well-circumscribed approximately 7 x 6 mm density lying approximately 6 cm from the nipple on craniocaudal caudal view along nipple line. Targeted ultrasound demonstrates at the 1 o'clock position, a 6 x 3 x 5 mm cyst with smooth back wall and increased through sound transmission. Results are discussed with the patient at time of visit. MM/MM tomosynthesis added views L IMPRESSION: Left breast density corresponds to a cyst. ASSESSMENT: BI-RADS 2: Benign RECOMMENDATION: Routine annual mammography screening due in 12 months. This patient's information was entered into a reminder system with a target due date for their next mammogram.
--- NOTE | ~2020-09-10 | US_ITS ---
EXAMINATION: US DIAGNOSTIC ULTRASOUND BREAST, LEFT CLINICAL INFORMATION: 7 x 5 mm circumscribed density central left breast. COMPARISON: Mammography of same day as well as studies dating back to January 17, 2012. TECHNIQUE: Ultrasound of the breast is performed with real-time ewing scale imaging and color Doppler. FINDINGS: There is noted to be a cyst with smooth margins and increased through sound transmission which is wider than it is tall without internal vascularity at the 1:00 position 5 cm from the nipple. This measures 6 x 3 x 5 mm in size. There is no solid mass, architectural abnormality, duct ectasia, or edema in the soft tissue planes. Results are discussed with the patient at time of visit. US/US breast LT limited IMPRESSION: Left breast density corresponds to a cyst. ASSESSMENT: BI-RADS 2: Benign RECOMMENDATION: Routine annual mammography screening due in 12 months. This patient's information was entered into a reminder system with a target due date for their next mammogram.
== END 2020-09-10 13:10 | disposition home or self-care (01) ==
LOC: HO.MAMMO 13:09
PROVIDERS: PCP Internal Medicine; Visit Provider Internal Medicine
DX: R92.8 Other abnormal and inconclusive findings on diagnostic imaging of breast (principal)
CPT/HCPCS: 76642; 77061; 77065

== ENCOUNTER 2020-11-11 13:23 | Outpatient (REF) | payer MEDICAID, SELFPAY ==
[2020-11-11 14:12] LABS: MANUAL DIFF FLAG NO
[2020-11-11 14:17] LABS: Glucose Urine UA NEG (NEG); Leukocyte Esterase Urine 2+ (NEG); Nitrite Urine NEG (NEG); Specific Gravity - Urine >= 1.030 (1.005-1.025); Urine Blood NEG (NEG); Urine Ketones NEG (NEG); Urine Protein NEG (NEG-TRACE)
[2020-11-11 14:20] LABS: Appearance Urine HAZY; Color Urine YELLOW
[2020-11-11 14:26] LABS: Basophils Absolute Auto 0.1 X10*3/uL (0.0-0.2); Basophils Percent Auto 0.6 % (0-2); Eosinophils Absolute Auto 0.1 X10*3/uL (0.0-0.4); Eosinophils Percent Auto 1.1 % (0-4); Hematocrit 35.5 % (37-47); Hemoglobin 11.7 g/dl (12.0-16.0); Imm Gran Abs Auto 0.03 X10*3/uL (0.00-0.03); Imm Gran Pct Auto 0.3 % (0.0-0.4); Lymphocytes Percent Auto 33.7 % (20-40); Mean Corpuscular Hemoglobin 29.5 pg (27.0-33.0); Mean Corpuscular Volume 89.4 fL (80-98); Mean Platelet Volume 11.1 fL (9.4-12.3); Monocytes Absolute Auto 0.8 X10*3/uL (0.1-1.2); Monocytes Percent Auto 8.4 % (2-11); Neutrophils Percent Auto 55.9 % (45-73); Platelet Count 237 X10*3/uL (160-400); Red Blood Count 3.97 X10*6/uL (4.20-5.50); Red Cell Distribution Width 13.2 % (11.0-16.0)
[2020-11-11 14:37] LABS: Mucus Urine 1+ /LPF; Squamous Epithelial Cell Urine 1+ /LPF
[2020-11-11 15:35] LABS: Erythrocyte Sedimentation Rate 27 MM/HR (0-20)
[2020-11-11 18:33] LABS: Alanine Aminotransferase 22 U/L (0-31); Albumin Level 4.3 g/dL (3.5-5.0); Alkaline Phosphatase 96 U/L (39-117); Anion Gap 11 (12-20); Aspartate Amino Transferase 22 U/L (5-31); Bilirubin Total 0.2 mg/dL (0.0-1.0); Blood Urea Nitrogen 23 mg/dL (9-16); Calcium 9.3 mg/dL (8.4-10.2); Carbon Dioxide 28 mmol/L (22-29); Chloride 105 mmol/L (96-108); Estimated Glomerular Filt Rate > 60; Glucose Random 101 mg/dL (60-115); Potassium 4.3 mmol/L (3.3-5.1); Sodium 140 mmol/L (135-145); Total Protein 7.7 g/dL (6.5-8.0)
[2020-11-12 12:11] LABS: Anti DNA DS Antibody 2 IU/mL
[2020-11-12 14:12] LABS: Complement C3 151 mg/dL (83-193)
== END 2020-11-11 13:24 | disposition home or self-care (01) ==
LOC: HO.LAB 13:23
PROVIDERS: PCP Internal Medicine; Visit Provider Student in an Organized Health Care Education/Training Program
DX: M32.9 Systemic lupus erythematosus, unspecified (principal)
CPT/HCPCS: 36415; 80053; 81001; 85025; 85652; 86140; 86160; 86225; 99212